=== PATIENT | male | born 1965 | race Caucasian/White ===

== ENCOUNTER → 2020-08-23 | Outpatient (CLI) | payer OTHER, BC | LOC: CT 12:02 | DX: I89.0 Lymphedema, not elsewhere classified (principal); K74.60 Unspecified cirrhosis of liver; R16.1 Splenomegaly, not elsewhere classified; R93.5 Abnormal findings on diagnostic imaging of other abdominal regions, including retroperitoneum; K57.90 Diverticulosis of intestine, part unspecified, without perforation or abscess without bleeding | CPT/HCPCS: 36415; 82565; Q9967 ==

== ENCOUNTER → 2021-11-20 | Outpatient (CLI) | payer OTHER | LOC: ECHO 10:30 | DX: R01.1 Cardiac murmur, unspecified (principal); I08.3 Combined rheumatic disorders of mitral, aortic and tricuspid valves | CPT/HCPCS: ECHO; 93306 ==

== ENCOUNTER → 2022-01-21 | Outpatient (CLI) | payer OTHER | LOC: EXRD 14:48 | DX: M19.91 Primary osteoarthritis, unspecified site (principal); M85.88 Other specified disorders of bone density and structure, other site | CPT/HCPCS: 77080 ==